=== PATIENT | male | born 1990 | race Caucasian/White ===

== ENCOUNTER 2017-04-08 14:34 | Emergency (ER) | payer OTHER ==
[~2017-04-08 14:34] MED LIST: AMOXICILLIN250 MG PO; ANUSOL-HC CREAM30 G1 EXT; AUGMENTIN875 M1 PO; BACTRIM DS TABL1 TA1 PO; CIPRO PO; CLEOCIN150 MG PO; DIAZEPAM PO; DOXYCYCLINE150 MG PO; FLAGYL PO; FLEXERIL10 MG PO; IBUPROFEN800 MG PO; ILOTYCIN; LORTAB 10-3251 EACH PO; MONODOX100 MG PO; NAPROXEN PO; NO MEDICATIONS; PREDNISONE PO; REMERON15 MG PO; SUBOXONE 8 MG-1 EAC1; SUBOXONE 8 MG-1 EAC1 SL; VICODIN 5/1 TAB 5/50 PO; VOLTAREN75 MG PO
[2017-04-08 14:57] LABS: URINE BILIRUBIN NEG (NEG); URINE BLOOD NEG (NEG); URINE COLOR YELLOW; URINE GLUCOSE NEG (NORM); URINE KETONE NEG (NEG); URINE LEUKOCYTE ESTERASE 1+ (NEG); URINE NITRATE NEG (NEG); URINE PROTEIN NEG (NEG); URINE SPECIFIC GRAVITY 1.025 (1.003-1.035); URINE UROBILINOGEN 0.2 MG/DL (NORM)
[2017-04-08 15:04] LABS: MICRO INDICATED? YES; URINE APPEARANCE SL HAZY; URINE SOURCE CLEAN CATCH
[2017-04-08 15:06] LABS: CULTURE INDICATED? YES; URINE BACTERIA 1+ (NEG); URINE WBC 200-300 /[HPF] (0-5)
[2017-04-08 15:07] LABS: URINE MUCUS PRESENT; URINE SQUAMOUS EPITHELIAL CELL OCCAS /[HPF]
[2017-04-11 08:58] LABS: CHLAMYDIA TRACH Not Detected (Not Detected); N GONOR Not Detected (Not Detected)
== END 2017-04-08 15:24 | disposition home or self-care (01) ==
LOC: SED 14:34
PROVIDERS: Emergency Medicine
DX: N34.2 Other urethritis (principal); F17.210 Nicotine dependence, cigarettes, uncomplicated; Z79.899 Other long term (current) drug therapy
CPT/HCPCS: 81003; 87086; 87491; 87591; 99283; J0696

== ENCOUNTER 2017-06-02 17:05 | Emergency (ER) | payer OTHER | END 2017-06-02 17:32 | disposition home or self-care (01) | LOC: SED 17:05 | DX: L02.01 Cutaneous abscess of face (principal); F17.200 Nicotine dependence, unspecified, uncomplicated | CPT/HCPCS: 99282 ==